=== PATIENT | female | born 1935 | race Hispanic/Latino ===

== ENCOUNTER → 2022-03-19 | Outpatient (CLI) | payer OTHER, MEDICARE ==
[~2022-03-19] MED LIST: IOHEXOL 350 MG/ML 100ML INFUS..BTL IV ONE
== END | disposition home or self-care (01) ==
LOC: RAH 09:57
PROVIDERS: ATTEND Internal Medicine Cardiovascular Disease
DX: R06.02 Shortness of breath (principal)
CPT/HCPCS: 75574; Q9967